=== PATIENT | female | born 1945 | race Caucasian/White ===

== ENCOUNTER 2017-09-02 09:40 | Inpatient (IN) | payer MEDICARE ==
[~2017-09-02] VITALS: Ht 167.6 cm; Wt 69.7 kg
[2017-09-02] MEDS ORDERED: LISINOPRIL10 MG PO (11:06)
[2017-09-02] MEDS ORDERED: GLIPIZIDE 10 MG10 MG PO (11:19)
[2017-09-02] MEDS ORDERED: LASIX 40 MG TAB40 M1 PO (11:20)
[2017-09-02] MEDS ORDERED: CARVEDILOL3.125 MG PO (11:21)
[2017-09-02] MEDS ORDERED: LIPITOR 20 MG T20 M1 PO (11:32)
[2017-09-02] MEDS ORDERED: ASPIR 8181 MG PO (11:33)
[2017-09-02] MEDS ORDERED: PACERONE 200 M200 M1 PO (11:34)
[2017-09-02] MEDS ORDERED: TYLENOL325 MG PO ×2 (11:35→11:36)
[2017-09-02] MEDS ORDERED: LEVEMIR100 UNIT/1 SUBQ (11:38)
[2017-09-02] MEDS ORDERED: TRAMADOL 50 MG50 MG PO (11:39)
[2017-09-02] MEDS ORDERED: PREDNISONE 5 MG5 M1 PO (11:44)
[2017-09-02] MEDS ORDERED: POTASSIUM20 PO (11:45)
[2017-09-02] MEDS ORDERED: PROTONIX40 M1 PO (11:46)
[2017-09-02] MEDS ORDERED: HUMALOG100 UNIT/1 SUBQ (11:47)
[2017-09-02 12:00] VITALS: BP 116/53
--- NOTE | 2017-09-02 13:14 | NUR ---
Nutrition: Spoke with RN: pt has been at [facility] and was on heart healthy, low CHO diet. RD ordered t his for pt here as well. Pt also stated she was receiving Boost Glucose Control - RD ordered that here as well. H/o CABG and DM. BG is 319 today. Pt is newly admitting - not a lot of info right now besides speaking with RN. Will follow weekly.
--- NOTE | 2017-09-02 16:34 | NUR ---
ASSUMMED CARE OF PT AT 1130 UPON ARRIVAL TO UNIT ADMISSION, PT ALERT AND ORIENTED, PT DENIES NAUSEA, DENIES PAIN, STATES A LITTLE SORE BUT DOES NOT NEED MEDICATION THIS SHIFT,TAKING FOOD AND FLUIDS WELL, STERNAL PRECAUTIONS MAINTAINED, MIDLINE CHEST INCISION HEALING, NO DRAINAGE NOTED, 2 SMALL INCISIONS ON UPPER ABDOMEN GAPING SLIGHTLY WITH SANGUINOUS DRAINAGE, MEPILEX APPLIED, BLISTERED AREA ON RIGHT UPPER INNER THIGH, OPENED, CLEANSED AND MEPILEX APPLIED, HARVEST SITE OF RLE DRY AND INTACT,SCABBED HARVEST SITE ON LLE DRAINING LARGE AMOUNTS OF SEROUS SANGUINOUS DRAINAGE, DRESSING CHANGED X 3 THIS SHIFT,RECTAL/COCCYX AREA RED, BARRIER OINTMENT APPLIED, WAFFLE CUSHION ON CHAIR, PT ENCOURAGED TO LAY ON SIDE WHEN IN BED, PARTICIPATED IN THERAPY, TRANSFERS WITH MOD ASSIST AND GB, NEEDS ASSIST TO STAND, ADMISSION COMPLETED, PICTURES TAKEN OF WOUNDS, ASSESSMENT COMPLETE, HOURLY ROUNDING COMPLETED, WILL CONTINUE TO MONITER.
[2017-09-02 20:25] VITALS: BP 131/50
--- NOTE | 2017-09-02 23:07 | NUR ---
ASSUMED CARE AT 1930. 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 ADHERES TO STERNAL PRECAUTIONS. USES HEART PILLOW TO SPLINT WITH COUGHING. COLACE HELD PER REQUEST. VOIDS PER TOILET, STOOL RISER IN USE. CAN DO HYGIENE AND CLOTHING ADJUSTMENTS. WEARS BRIEF. WAS INCONTINENT OF STOOL SOILING CLOTHING. CHUCKING AND SAWING MACHINE OPERATOR ASSISTED GETTING OFF THE BRIEF SO IT WOULD NOT FURTHER LEAK, BUT PATIENT ABLE TO DOFF NEW BRIEF. MOISTURE BARRIER APPLIED. STERNAL INCISION C/D/I. TWO WOUNDS ALONG BRA LINE HAVE MIPILEX AND ARE C/D/I. RT INNER THIGH BLISTERS HAVE MIPILEX. RIGHT CALF DONOR SITE SCABBED. LT DONOR SITE DRAINING SEROSANG, MIN AMOUNT, DRESSING CHANGED AT 2100 USING ABD FOLDED IN HALF AND SECURED WITH YANELY. PICC RT ARM DRESSING C/D/I, FLUSHES WELL. BILAT 2+ ANKLE EDEMA, ELEVATED ON PILLOWS AND HEELS OFFLOADED. TAKES PILLS WHOLE, MANY AT A TIME WITH WATER WITHOUT DIFF. HOURLY ROUNDS CONTINUE, BED ALARM ON. CALL LITE IN REACH.
--- NOTE | 2017-09-03 05:55 | NUR ---
SLEPT MOST OF THE NIGHT. TURNS SELF. NO C/O PAIN. UP TO VOID WITH MIN ASSIST, GAIT BELT AND HEART PILLOW FOR STERNAL PRECAUTIONS. HOURLY ROUNDS CONTINUE. BED ALARM ON. CALL LITE IN REACH.
[2017-09-03 08:07] VITALS: BP 124/66
--- NOTE | 2017-09-03 16:43 | NUR ---
PT PARTICIPATES IN ALL THERAPIES. PT UP TO BR WITH SB ASSIST. PT TOLERATES PO WELL. PAIN WELL CONTROLLED WITH PO MEDS
[2017-09-03 20:11] VITALS: BP 108/53
--- NOTE | 2017-09-03 22:13 | NUR ---
ASSUMED CARE AT 1930. PATIENT S/P CABG X 5. ON STERNAL PRECAUTIONS. PATIENT ABLE TO RISE WITH MINIMAL ASSIST, AMB WITHOUT ASSISTIVE DEVICE, GAIT BELT. VOIDS PER TOILET. ABLE TO DO HYGIENE AND CLOTHING ADJUSTMENTS. BRUSHED OWN TEETH. FLOSSED SOME TEETH, AND THEN ASKED IF IT WAS OK TO REUSE FLOSS. THIS NURSE INSTRUCTED THAT IT WOULD BE MORE SANITARY TO DISCARD FLOSS AFTER EACH USE. CHANGED INTO HOSPTIAL GOWN BRIEF FOR HS PER REQUEST DUE TO FECAL INCONTINENCE. MEDICATED FOR PAIN AT HS, SLEEPING SHORTLY AFTER. STERNAL INCISION BUSINESS SOLUTIONS ARCHITECT, C/D/I. TWO CHEST AREA DRESSINGS C/D/I. DRESSING TO RT DONOR SITE C/D/I. LT THIGH DONOR SITE DRESSING IS ABD/ROLLAR GAUZE IS C/D/I AT THIS TIME. HEELS OFFLOADED. PATIENT ABLE TO TURN SELF IN BED. HOURLY ROUNDS CONTINUE, BED ALARM ON, CALL LITE IN REACH.
--- NOTE | 2017-09-04 06:12 | NUR ---
SLEPT MOST OF THE NIGHT. VOIDED AROUND MIDNIGHT. NO APPARENT DISTRESS. HOURLY ROUNDS CONTINUE. BED ALARM ON. CALL LITE IN REACH.
[2017-09-04 06:47] VITALS: BP 125/59
[2017-09-04 08:00] VITALS: BP 106/67
--- NOTE | 2017-09-04 16:08 | NUR ---
ASSUMMED CARE OF PT AT 0730, PT ALERT AND ORIENTED, PT DENIES PAIN, MAINTAINING STERNAL PRECAUTIONS, TRANSFERS WITH MIN ASSIST AND GB, USES RED CARDIAC PILLOW FOR SUPPORT TO STERNUM, DENIES NAUSEA, TAKING FOOD AND FLUIDS WELL, PT UP IN CHAIR ALL AM, DOING LEG EXERCISES, PT DID PARTIAL BATH AND GROOMING SITTING AT SINK IN CHAIR INDEPENDENTLY, PT HAD SEVERAL VISITORS AT LUNCH AND REFUSED TO GO TO DININGROOM, DRESSING CHANGED TO INCISION SITES AND BLISTERED AREA, PICTURES TAKEN, ORDER FOR WD NURSE TO ASSESS BLISTERED AREA, LLE HARVEST SITES DRAINING LARGE AMOUNT OF SEROUS SANGUINOUS DRAINAGE,HOURLY ROUNDING COMPLETE, ASSESSMENT COMPLETE WILL CONTINUE TO MONITER.
[2017-09-04 19:38] VITALS: BP 117/50
--- NOTE | 2017-09-04 22:16 | NUR ---
ASSUMED CARE AT 1930. PATIENT S/P CVA. RESTING IN BED AT CHANGE OF SHIFT. VOIDS PER URINAL, NURSE EMPTIES. TAKES PILLS WHOLE WITH WATER WITHOUT DIFF. TURNS PER SELF, BUT NEEDS REMINDERS. INSTRUCTED IN NEED TO LAY COMPLETELY OFF HIS BACK TO HEAL COCCYX WOUND. PATIENT RESPONDED, "I WILL WORK ON THAT LATER." BUT DOES HAVE PILLOW UNDER RIGHT HIP THAT MAKES HIS HIP MORE COMFORTABLE. REFUSES ASSIST WITH TURNS AT THIS TIME. BILAT ANKLES SWOLLEN, FOOT OF BED ELEVATED, AND HEELS OFFLOADED WITH PILLOWS. LOTION LIBERALLY APPLIED TO BILAT FEET--SKIN INTEGRITY GOOD BUT HAS CALLUSES BILAT. ON C DIFF ISOLATION, FAMILY MEMBERS COMPLIED WITH IT THIS EVENING. PAIN MED AT HS. C/O LEFT LEG HAVING INTERMITTENT SHOOTING SYMPTOMS, NOT PAINFUL, BUT SHOOTING. MUSCLE TWITCHING OBSERVED BY THIS NURSE. INSTRUCTED NOT TO DRINK ANY ALCOHOL WITH FLAGYL IF HE GOES HOME ON THIS MED, PATIENT REPLIED THAT HE IS "DONE DRINKING." HOURLY ROUNDING CONTINUES. BED ALARM ON. CALL LITE IN REACH.
--- NOTE | 2017-09-04 22:28 | NUR ---
ASSUMED CARE AT 1930. PATIENT S/P CABG X 5. RESTING IN RECLINER WITH LEGS UP AT CHANGE OF SHIFT. VOIDED PER TOILET. UP WITH MIN LIFTING ASSIST, GAIT BELT, HEART PILLOW, STERNAL PRECAUTIONS. ABLE TO DO HYGIENE AND CLOTHING ADJUSTMENTS. ASSISTED WITH BILAT LEGS GETTING INTO BED. DRESSINGS TO ANTERIOR LOWER CHEST C/D/I. STERNAL INCISION PRESSROOM WORKER AND WELL APPROXIMATED. RT THIGH DRESSING C/D/I. LT DONOR SITE DRESSING CHANGED, HAD PINK TINGED DRAINAGE IN SMALLER AMOUNT THAN LAST NIGHT. AREA APPROXIMATING A LITTLE MORE, BRUISING IN AREA LESSENING. BLE ELEVATED ON PILLOWS WITH HEELS OFFLOADED. C/O THAT SHE IS ON MORE MEDICINES THAN SHE WAS AT HOME PRIOR TO HER CABG. INSTRUCTED HER THAT PHYSICIANS HAVE PRESCRIBED THESE MEDS BASED ON THE CHANGES IN HER PHYSICAL CONDITION THAT HAVE OCCURED S/P CABG, VERBALIZED UNDERSTANDING. HOURLY ROUNDS CONTINUE. BED ALARM ON. CALL LITE IN REACH.
[2017-09-05 04:43] LABS: CALCIUM 8.5 mg/dL (8.5-10.1); CREATININE 1.7 mg/dL (0.6-1.3); POTASSIUM 5.2 mmol/L (3.5-5.1)
--- NOTE | 2017-09-05 05:47 | NUR ---
SLEPT MOST OF THE NIGHT. UP TO VOID AFTER LABS DRAWN. LAB RETURNED WITH K OF 5.2. NEW ORDER TO HOLD THIS MORNING'S DOSE OF POTASSIUM AND DRAW LYTES IN AM PER DR. FRANCO. NO C/O PAIN. PATIENT OBSERVING STERNAL PRECAUTIONS. NEEDS HELP GETTING LEGS IN/OUT OF BED, AND NEEDS HELP SITTING UP IN BED DUE TO STERNAL PRECAUTIONS. ONCE IN SITTING POSITION ABLE TO RISE MUCH EASIER. HOURLY ROUNDS CONTINUE. BED ALARM ON. CALL LITE IN REACH.
[2017-09-05 07:55] VITALS: BP 135/64
--- NOTE | 2017-09-05 15:07 | NUR ---
ASSUMED CARE AT 0730 PATIENT ALERT/ORIENTED, NO COMPLAINTS OF PAIN THIS SHIFT. UP WITH ASSIST OF ONE AND GAIT BELT. BED/CHAIR ALARMS IN PLACE, CALL LIGHT IN REACH, HOURLY ROUNDING COMPLETED. PARTICIPATED IN ALL THERAPIES TODAY, TO DINING ROOM FOR MEALS. DRESSING TO LLE CHANGED DUE TO DRAINAGE AT SITE X2. CONTINUE WITH CURRENT PLAN OF CARE
--- NOTE | 2017-09-05 16:33 | NUR ---
WOUND CARE NOTE: CONSULT RECEIVED FOR BLISTERS PATIENT WITH HEALING INCISION LINE TO THE RIGHT INNER THIGH, TO BOTH SIDES THERE ARE BLISTERS. THE SUPERIOR MOST BLISTER IS FLAT AND DRY. THE DISTAL MOST BLISTER IS RUPTURED WITH A MOIST, RED WOUND BED THIS IS APPROXIMATELY 1X1X0.1. CLEANSED WITH WOUND CLEANSER, PATTED DRY. APPLIED AQUACEL AG AND SECURED WITH BORDERED FOAM. BELIEVE THIS WOUND MAY HAVE OCCURED FROM ADHESIVE COVERING THE INCISION SITE. LEFT LOWER LEG HARVEST SITE: WOUND MEASURES 0.8X0.3X0.4. DEHISCED PUNCTURE SITE. WOUND BED IS MOIST, RED. LARGE AMOUNTS OF SEROUS DRAINAGE. AFTER CLEANSING, PACKED WITH AQUACEL AG AND COVERED WITH ABD. SECURED WITH KERLIX. EDUCATED PATIENT ON IMPORTANCE OF NUTRITION FOR WOUND HEALING, COMMUNICATED UNDERSTANDING. EDUCATED ON FINDINGS AND DRESSING SELECTIONS, COMMUNICATED UNDERSTANDING. RECOMMEND TIGHT BLOOD GLUCOSE CONTROL ENCOURAGE GOOD NUTRITION AND HYDRATION
--- NOTE | 2017-09-05 16:48 | NUR ---
SW met with pt to complete initial assessment, introduce self, and SW role. Pt hopeful to be able to return home alone. Pt says that her niece who lives next door has a boyfriend who has 2 children and pt niece works apartment coordinator so pt is unsure how much niece will be able to assist pt if needed. Pt said that she may have other support at dc in her sister Jeanne but pt is not certain. Pt was independent prior to hospitalization and pt has no hx DME or HH. SW to continue to follow to assist with safe dc planning.
[2017-09-05 20:00] VITALS: BP 139/52
--- NOTE | 2017-09-05 20:00 | NUR ---
SITTING UP IN RECLINER WATCHING TV. DENIES DISCOMFORT. TOOK MEDS WHOLE WITH WATER.
[2017-09-06 04:25] LABS: CALCIUM 8.6 mg/dL (8.5-10.1); CREATININE 1.9 mg/dL (0.6-1.3); POTASSIUM 4.5 mmol/L (3.5-5.1)
--- NOTE | 2017-09-06 06:01 | NUR ---
UP X 3 DURING THE NIGHT TO THE BATHROOM TO VOID. DOES OWN HYGIENE AND CLOTHING ADJUSTMENTS. COMPLAINT WITH STERNAL PRECAUTIONS. DRESSING TO LLE CHANGED AT THE BEGINNING OF THE SHIFT DUE TO DRAINAGE. DRESSING IS DRY/INTACT. HOURLY ROUNDING IN PROGRESS.
[2017-09-06 07:32] VITALS: BP 144/63
--- NOTE | 2017-09-06 15:26 | NUR ---
I have reviewed the documentation by NATHAN TRAVIS from 09/06/17 to 09/06/17 and I concur with it. FAHAD GRAMAJO
--- NOTE | 2017-09-06 16:59 | NUR ---
ASSUMMED CARE OF PT AT 0730, PT ALERT AND ORIENTED, FORGETFUL, PT TRANSFERS WITH SBA, GB ABLE TO GO FROM SIT TO STAND MAINTAINING STERNAL PRECAUTIONS, AMBULATED TO DININGROOM, GAIT STEADY, PT DENIES PAIN, DENIES NAUSEA, APETITE GD, DRESSING CHANGED TO RIGHT CALF HARVEST SITE, DRESSING WAS SATURATED WITH SEROUS SANGUINOUS DRAINAGE, STERNAL SITE HEALING WELL, DRESSING DRY TO BLISTERED AREA ON RIGHT INNER THIGH, PARTICIPATED IN ALL THERAPIES, HOURLY ROUNDING COMPLETED ASSESSMENT COMPLETE, WILL CONTINUE TO MONITER.
--- NOTE | 2017-09-06 20:00 | NUR ---
SITTING UP IN RECLINER WATCHING TV. DENIES PAIN. SNACK PROVIDED. TOOK MEDS WHOLE ONE AT A TIME WITH WATER.
[2017-09-06 21:01] VITALS: BP 129/51
--- NOTE | 2017-09-07 06:27 | NUR ---
RESTED ON/OFF. HAD DIFFICULTY SLEEPING. DENIED PAIN. UP X TWO DURING THE NIGHT TO VOID. NO BM BUT PASSING FLATUS. HOURLY ROUNDING IN PROGRESS.
[2017-09-07 07:45] VITALS: BP 113/80
--- NOTE | 2017-09-07 15:07 | NUR ---
SW met with pt to review team conference summary. Plan for pt to continue therapy on rehab unit at least another week and for team to reassess pt length of stay during team conference next Thursday 09/14. PT reported min assist to supervision with transfers, min assist with walking 150 ft with RW, min assist 12 stairs. OT reported supervision for toileting, toilet transfer, bathing, and lower body dressing, mod assist with grooming, min assist with UB dressing. ST reported pt to be supervision with comprehension, mod I with expression, min assist with problem solving and memory. Pt wondered about being able to go to her doctor's appt on 09/14 and SW explained that if needed, SW would assist with arranging a ride and pt would go on a pass for appt if approved by rehab doctor. Pt said her sister Jeanne may be visiting pt tomorrow around Noon and SW could follow up with pt sister at that time. SW to continue to follow to assist with safe dc planning.
--- NOTE | 2017-09-07 18:07 | NUR ---
PATIENT IS RESTING IN CHAIR. PATIENT IS UP STANDBY ASSIST WITH GAIT BELT. PATIENT IS ON STERNAL PRESCAUTIONS AND HAS HEART PILLOW. PATIENT DENIES ANY PAIN. PATIENT HAS WOUND TO LLE WHICH IS DRAINING LARGE AMOUNT OF SEROSANGINOUS FLUID, DRESSING CHANGED THIS AFTERNOON. STERNAL WOUND OPEN TO AIR AND HEALING. RLE WOUND HEALING AND DRESSING CHANGED THIS AFTERNOON. PATIENT HAS GOOD APPETITE. PATIENT DENIES ANY NEEDS AT THIS TIME. CALL LIGHT WITHIN REACH. WILL CONTINUE TO MONITOR.
[2017-09-07 20:57] VITALS: BP 128/58
--- NOTE | 2017-09-08 01:01 | NUR ---
ASSUMED CARE @ 1929-09/07-TUE.SITS IN RECLINER W/ LE'S UP.HEART PILLOW ON CHEST AREA.SBA FOR ALL TRANSFERS & TOILETING.WANTS ONLY SIDERAILS X 2 UP.BED ALARM PUT ON @ 2129.HEELS OFF BED @ 2129.EDEMA-+1 PITTING RIGHT LEG/RIGHT FOOT & RIGHT ANKLE.PREFERS TO STAY ON HER BACK @ NIGHT W/ HOB UP.ON HOURLY ROUNDS. COMMUNITY HEALTH NURSE DOING ODD HOUR ROUNDS.
--- NOTE | 2017-09-08 05:26 | NUR ---
SLEEPING SINCE 2199.BRP W/ SBA X3.TOOK ALL ORANGE SHERBET HS SNACK.WEARS PULL UPS.
[2017-09-08 08:18] VITALS: BP 118/53
[2017-09-08 08:21] VITALS: BP 118/53
--- NOTE | 2017-09-08 16:09 | NUR ---
I have reviewed the documentation by NATHAN TRAVIS from 09/08/17 to 09/08/17 and I concur with it. FAHAD GRAMAJO
--- NOTE | 2017-09-08 18:21 | NUR ---
ASSUMED CARE AT 0730 PATIENT ALERT/ORIENTED, NO COMPLAINTS OF PAIN THIS SHIFT, UP WITH ASSIST OF ONE AND WALKER/GAIT BELT, PARTICIPATED IN ALL THERAPIES TODAY, TO DINING ROOM FOR MEALS. BED/CHAIR ALARMS IN PLACE, HOURLY ROUNDING COMPLETED. CONTINUE WITH CURRENT PLAN OF CARE
[2017-09-08 20:12] VITALS: BP 149/53
--- NOTE | 2017-09-09 02:32 | NUR ---
ASSUMED CARE @ 1922-09/08-.SITS IN RECLINER W/ LE'S UP.WATCHING TV.CHAIR ALARM ALREADY ON @ 1922.HEELS OFF RECLINER @ 1922.EDEMA-+1 PITTING RIGHT LEG, RIGHT ANKLE & RIGHT FOOT.TO BED LATE @ 2209.HEELS OFF BED @ 2209 & BED ALARM PUT ON @ 2209.PREFERS TO STAY ON HER BACK DURING NIGHT.STERNAL PRECAUTIONS OBSERVED.ON HOURLY ROUNDS.SALES EXECUTIVE DOING ODD HOUR ROUNDS.
--- NOTE | 2017-09-09 05:50 | NUR ---
SLEEPING SINCE -09/09-TUESDAY.TOOK ALL ORANGE SHERBET HS SNACK.BRP W/ SBA X2.WEARS PULL UPS.
[2017-09-09 07:54] VITALS: BP 117/59
[2017-09-09 08:34] VITALS: BP 117/59
--- NOTE | 2017-09-09 17:09 | NUR ---
AM ASSESSMENT AND VITAL SIGNS COMPLETED DOCUMENTED. PT HAS BEEN COOPERATIVE BUT HAS A FLAT AFFECT. STERNAL PRECAUIOTNS MAINTAINED AND PT HAS BEEN SUPERVISION/ STAND BY WITH ALL TASKS THIS SHIFT. PT DECLINED PAIN MEDICATION. STERNAL INCISION REMAINS RADIOLOGIC TECHNOLOGIST MAMMOGRAM, ALL OTHER DRESSINGS ARE C/D/I. FALL PRECAUTIONS AND HOURLY ROUNDING CONTINUE PER PROTOCOL.
[2017-09-09 20:16] VITALS: BP 113/50
--- NOTE | 2017-09-10 00:01 | NUR ---
ASSUMED CARE AT 1930. PATIENT S/P CABG X 5. RESTING IN RECLINER UNTIL AROUND 2099. UP WITH ONE, GAIT BELT, HEART PILLOW. STERNAL PRECAUTIONS OBSERVED. WEARS PULLUP. TAKES PILLS ONE AT A TIME WITH WATER WITHOUT DIFF. DRESSINGS TO CHEST C/D/I, LEG DRESSINGS INTACT. TURNS SELF IN BED. SLEEPS WITH HOB ELEVATED AND PREFERS BACK. DENIES PAIN. HEELS OFFLOADED WITH PILLOW. HOURLY ROUNDS CONTINUE. BED ALARM ON. CALL LITE IN REACH.
--- NOTE | 2017-09-10 06:16 | NUR ---
SLEPT MOST OF THE NIGHT. VOIDED PER TOILET. WEARS PULLUP, NO INCONTINENCE. NO C/O PAIN. HOURLY ROUNDS CONTINUE. BED ALARM ON. CALL LITE IN REACH.
[2017-09-10 07:51] VITALS: BP 133/60
--- NOTE | 2017-09-10 16:09 | NUR ---
ASSUMED CARE AT 0730 PATIENT ALERT/ORIENTED, NO COMPLAINTS OF PAIN THIS SHIFT, UP WITH ASSIST OF ONE AND WALKER/GAIT BELT, TO DINING ROOM FOR MEALS, BED/CHAIR ALARMS IN PLACE, CALL LIGHT IN REACH. PARTICIPATED IN ALL THERAPIES TODAY. HOURLY ROUNDING COMPLETED. CONTINUE WITH CURRENT PLAN OF CARE
[2017-09-10 20:19] VITALS: BP 125/54
--- NOTE | 2017-09-11 00:57 | NUR ---
ASSUMED CARE @ 1929-09/10-SAT.SITS IN RECLINER W/ LE'S UP.CARDIAC PILLOW ON CHEST.WEARS PULL UPS.SBA FOR ALL TRANSFERS & TOILETING.EDEMA-+1 PITTING RIGHT FOOT & RIGHT ANKLE.BED ALARM PUT ON @ 2129.HEELS OFF BED @ 1929 WHILE IN RECLINER & WHILE IN BED.WANTS ONLY SIDERAILS X2 UP.ON HOURLY ROUNDS.WAREHOUSE LABORER DOING ODD HOUR ROUNDS.
[2017-09-11 04:45] LABS: HEMATOCRIT 29.5 % (37.0-47.0); HEMOGLOBIN 10.1 gm/dL (12.0-15.0); MCH 30.9 pg (26.0-34.0); MCHC 34.1 g/dL (28.0-37.0); MCV 90.6 fL (80.0-100.0); MPV 8.5 fl. (7.2-11.1); RBC 3.25 mil/uL (4.20-5.00); RDW-CV 15.5 % (10.5-14.5); WBC 9.2 thou/uL (4.0-11.0)
[2017-09-11 05:00] LABS: CALCIUM 8.3 mg/dL (8.5-10.1); CREATININE 1.7 mg/dL (0.6-1.3); MAGNESIUM 2.1 mg/dL (1.8-2.4); POTASSIUM 4.5 mmol/L (3.5-5.1)
--- NOTE | 2017-09-11 05:23 | NUR ---
BRP W/ SBA X4.TOOK ALL ORANGE SHERBET HS SNACKS.FOR CHEST X RAY TODAY-09/11- TUESDAY.
[2017-09-11 07:46] VITALS: BP 119/56
--- NOTE | 2017-09-11 17:48 | NUR ---
ASSUMED CARE AT 0730 PATIENT ALERT/ORIENTED, NO COMPLAINTS OF PAIN THIS SHIFT, UP WITH STANDBY ASSIST AND WALKER/GAIT BELT. TO DINING ROOM FOR MEALS. DRESSING TO LEFT LE CHANGED, AREAS TO ABDOMEN AND RIGHT LEG HEALING LEFT OPEN TO AIR. HOURLY ROUNDING COMPLETED. BED/CHAIR ALARMS IN PLACE, CALL LIGHT IN REACH. CONTINUE WITH CURRENT PLAN OF CARE
[2017-09-11 20:12] VITALS: BP 102/45
--- NOTE | 2017-09-12 01:35 | NUR ---
ASSUMED CARE @ 1949-09/11-TUESDAY.SITS IN RECLINER W/ LE'S UP WATCHING TV.CHAIR ALARM ALREADY ON @ 1949.EDEMA-+1 PITTING RIGHT ANKLE & RIGHT FOOT.WANTS ONLY SIDERAILS X 2 UP.USES WALKER @ NIGHT.SBA FOR ALL TRANSFERS & TOILETING.USES CARDIAC PILLOW WHEN GETTING UP FROM BED & RECLINER.HEELS OFF BED @ 2200.BED ALARM PUT ON @ 2200.PREFERS TO STAY ON HER BACK @ NIGHT.ON HOURLY ROUNDS.SCRAP CUTTER DOING ODD HOUR ROUNDS.
--- NOTE | 2017-09-12 05:20 | NUR ---
SLEEPING SINCE -09/12-TUESDAY.BRP W/ SBA X2.TOOK ALL ORANGE SHERBET HS SNACK.
[2017-09-12 07:30] VITALS: BP 132/60
--- NOTE | 2017-09-12 16:35 | NUR ---
ASSUMMED CARE OF PT AT 0730, PT ALERT ORIENTED FORGETFUL AT TIMES, PT UP WITH SBA, GB WALKER, PT TAKING FOOD AND FLUIDS WELL, PT DENIES PAIN, PT AMBULATED TO DININGROOM, PT DENIES PAIN, MAINTAINING STERNAL PRECAUTIONS, PARTICIPATED IN ALL THERAPIES, HOURLY ROUNDING COMPLETED, ASSESSMENT COMPLETE WILL CONTINUE TO MONITER.
[2017-09-12 17:14] VITALS: BP 129/65
[2017-09-12 20:09] VITALS: BP 117/46
--- NOTE | 2017-09-13 05:56 | NUR ---
ASSUMED CARES AT 1920. PT ALERT AND ORIENTED. PLEASANT. S/P CABG. STERNAL PRECAUTIONS. USES HEART PILLOW. DENIES ANY PAIN, SOA, DIZZINESS. SHE IS A SBA WITH GAIT BELT AND WALKER. UP TO BATHROOM. DOES OWN CARES. TAKES PILLS WHOLE WITHOUT ISSUES. CHEST INCISIONS ARE COLLAR BASTER JUMPBASTING. DRESSING TO LEFT CALF. LEGS UP ONTO PILLOWS IN BED. PT SLEPT MOST OF THE NIGHT. USED CALL LIGHT. BED ALARM ON.
[2017-09-13 07:54] VITALS: BP 140/61
--- NOTE | 2017-09-13 13:01 | NUR ---
JESSI tried to follow up with pt sister as SW confirmed pt appt for 09/14 has been rescheduled for after pt stay on [facility]. JESSI left a voicemail message requesting call back. JESSI to continue to follow to assist with safe dc planning.
[2017-09-13 16:53] VITALS: BP 146/60
--- NOTE | 2017-09-13 18:09 | NUR ---
ASSUMMED CARE OF PT AT 0730, PT ALERT AND ORIENTED, MECHOOPDA, PT TRANSFERS WITH ASSIST OF 1 GB AND WALKER, STERNAL PRECAUTIONS MAINTAINED, PT DENIES NEED FOR PAIN MEDICATION, TAKING FOOD AND FLUIDS WELL, STERNAL INCISION HEALING, STAB SITES C/D/I AND DENIS EXCEPT FOR LEFT LEG SITE WHICH HAD SMALL AMOUNT OF YELLOW DRAINAGE OUT, DRESSSING CHANGED, PARTICPATED IN ALL THERAPIES, HAD LUNCH AND DINNER IN DININGROOM, VOIDS PER TOILET, HOURLY ROUNDING COMPLETED, ASSESSMENT COMPLETE, WILL CONTINUE TO MONITOR.
[2017-09-13 20:21] VITALS: BP 124/54
--- NOTE | 2017-09-13 21:00 | NUR ---
SITTING UP IN CHAIR WATCHING TV. DENIES DISCOMFORT. TOOK MEDS WHOLE WITH WATER. SNACK PROVIDED.
--- NOTE | 2017-09-14 06:29 | NUR ---
UP X ONE DURING THE NIGHT TO THE BATHROOM TO VOID. RESTED QUIETLY. NO COMPLAINTS VOICED. HOURLY ROUNDING IN PROGRESS.
[2017-09-14 08:53] VITALS: BP 119/59
--- NOTE | 2017-09-14 16:28 | NUR ---
SW met with pt to review team conference summary. SW discussed team's concerns for pt being alone at dc and SW discussed pt sister to participate in family training tomorrow and SW asked pt if pt thought pt sister could spend 2 weeks at least with pt 07/03. Pt said that her sister still works time checker and that pt was not sure that pt sister would be able to take that much time off of work. SW explained team would recommend pt to dc to SNF then and pt is agreeable to plan. SW to send referrals and discuss SNF placement options with pt. SW also called pt sister Cynthia and discussed above as well. SW to continue to follow to assist with safe dc planning.
--- NOTE | 2017-09-14 18:29 | NUR ---
ASSUMED CARE AT 0730 PATIENT ALERT/ORIENTED, NO COMPLAINTS OF PAIN THIS SHIFT, DRESSING TO LLE CHANGED, MINIMAL DRAINAGE NOTED, HEALING WELL. ALL OTHER INCISION DENIS, CALL LIGHT IN REACH, BED/CHAIR ALARMS IN PLACE, TO DINING ROOM FOR MEALS. PARTICIPATED IN ALL THERAPIES THIS SHIFT. CONTINUE WITH CURRENT PLAN OF CARE
[2017-09-14 20:08] VITALS: BP 129/64
--- NOTE | 2017-09-15 01:07 | NUR ---
ASSUMED CARE @ 1943-.SITS IN RECLINER W/ LE'S UP.WATCHING TV.CHAIR ALARM ALREADY ON @ 1943.EDEMA-+ 1 PITTING RIGHT ANKLE.HAS RARE DRY COUGH. HEELS OFF BED & BED ALARM PUT ON @ 2199.MEPILEX DRSG IN PLACE LEFT UPPER LEG. ON HOURLY ROUNDS.HEAVY EQUIPMENT OPERATING ENGINEER DOING ODD HOUR ROUNDS.
--- NOTE | 2017-09-15 05:39 | NUR ---
SLEEPING SINCE 2199.BRP W/ SBA X2.WEARS PULL UPS.TOOK ALL ORANGE SHERBET HS SNACK.NOTED SMALL OPEN ULCER RIGHT BUTTOCK.PICTURE TAKEN @ 0420.MEPILEX DRSG APPLIED.CONSENTED TO TURN TO RIGHT SIDE @ 4658.WOUND CONSULT ORDERED.
[2017-09-15 07:41] VITALS: BP 117/56
--- NOTE | 2017-09-15 14:07 | NUR ---
WOUND NURSE: PATIENT SEEN TO ADDRESS INTEGUMENTARY LESIONS PRESENT ON RIGHT BUTTOCK, RIGHT THIGH, LEFT LOWER LEG. PERTAINING TO RIGHT BUTTOCK WOUND: PATIENT REPORTING SHE HAD SCOOTED DOWN WHILE IN BED WHEN SHE SUDDENLY HAD PAIN AT THE WOUND SITE. PRESENTS A SLIGHTLY RAISED LINEAR LESION MEASURING 1.0 X 0.2 X 0.1 CM. THERE IS PARTIAL THICKNESS TISSUE LOSS AND WITH SCANT SEROUS DRAINAGE NOTED. IT IS NOTED THAT THIS IS PRESENT ALONG THE MEDIAL ASPECT OF THE PULL UP BRIEF PATIENT IS WEARING. I DO NOT BELIEVE THIS IS PRESSURE RELATED, BUT MAY BE MILD TRAUMA RELATED WHEREAS I SUSPECT PATIENT WAS PINCHED BY THE INCONTINENCE BRIEF WHILE SCOOTING HERSELF IN THE BED. CLEANSED THE AFFECTED AREA WITH SOAP AND WATER, RINSED WITH WATER, THEN PATTED DRY. APPLIED MARTHON LIQUID PROTECTIVE DRESSING TO THE SITE. THIS WAS TOLERATED WELL BY THE PATIENT. LEFT THIGH WOUND PRESENTS A LINEAR OPEN SURGICAL LESION MEASURING 0.3 X 0.2 X 0.6 CM, SMALL AMOUNT OF SEROUSANGUINOUS DRAINAGE ON OLD DRESSING, NO PERIWOUND REDNESS, WARMTH, OR INDURATION IS NOTED. WOUND CLEANSED WITH WOUND CLEANSER AND GAUZE, THEN PACKED LIGHTLY INTO THE WOUND USING A STRIP OF AQUACEL AG, THEN COVERED WITH AQUACEL AG SQUARE UNDER A BORDERED FOAM DRESSING. RIGHT THIGH HAS NO DRESSING IN PLACE AND THERE IS NO OPEN WOUND NOTED AT TIME OF THIS WRITING. LESION IS CLOSED AND FREE OF REDNESS, WARMTH, INDURATION, OR DRAINAGE. PLAN TO KEEP CLEAN AND DRY AND OPEN TO AIR AT THIS TIME. PATIENT INSTRUCTED ON MEASURES TO PROMOTE HEALING AND S/S TO REPORT IF OCCURS.
[2017-09-15 15:51] VITALS: BP 117/56
--- NOTE | 2017-09-15 15:54 | NUR ---
SW met with pt and pt 2 sisters about dc planning. Pt sister Cynthia called earlier in the day and cancelled family training because she decided she did not want to participate in family training after all. SW discussed pt needing SNF placement since no one would be available to provide 24/7 assistance for at least the next 2 weeks. Pt preference for [facility] and other possibilities for [facility] (does not have any beds available) and [facility] which then the sisters said they would not want that location. JESSI faxed referrals and then Karl from [facility] called and accepted referral for pt to dc to SNF on Tuesday. SW to call to arrange transportation and continue to assist with safe dc planning.
--- NOTE | 2017-09-15 18:04 | NUR ---
ASSUMED CARE AT 0730 PATIENT ALERT/ORIENTED, UP WITH STANDBY ASSIST AND GAIT BELT, NO COMPLAINTS OF PAIN THIS SHIFT, STERNAL PRECAUTIONS FOLLOWED WITH REMINDERS, USES PILLOW NEEDED. DRESSING TO BUTTOCKS AND LEFT LEG CHANGED BY WOUND NURSE TODAY. BED/CHAIR ALARMS IN PLACE, CALL LIGHT IN REACH, TO DINING ROOM FOR MEALS, HOURLY ROUNDING COMPLETED. CONTINUE WITH CURRENT PLAN OF CARE
[2017-09-15 20:18] VITALS: BP 113/52
--- NOTE | 2017-09-16 01:03 | NUR ---
ASSUMED CARE @ 1919-09/15-TUESDAY.SITS IN RECLINER W/ LE'S UP.CHAIR ALARM ALREADY ON @ 1919.RARE DRY,NON PRODUCTIVE COUGH PRESENT.MEPILEX DRSG IN PLACE LEFT LE WOUND.USES CARDIAC PILLOW NEEDED.EDEMA-+1 PITTING RIGHT ANKLE ONLY. 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
--- NOTE | 2017-09-16 05:30 | NUR ---
SLEEPING SINCE -09/16-TUESDAY.BRP W/ SBA X2.WEARS PULL UPS.TOOK ALL ORANGE SHERBET HS SNACK.
[2017-09-16 07:46] VITALS: BP 118/51
--- NOTE | 2017-09-16 13:42 | NUR ---
AM ASSESSMENT AND VITAL SIGNS COMPLETED DOCUMENTED. PT HAS BEEN PLEASANT AND COOPERATIVE, FLAT AFFECT NOTED AT TIMES. PT CONTINUES TO PARTICIPATE IN THERAPY AND IS PROGRESSING TOWARD DISCHARGE GOALS, PLANNING TO DISCHARGE TO A SNF TOMMORROW. PT ENCOURAGED TO SHIFT HER WEIGHT FREQUENTLY WHEN SITTING IN A CHAIR AND TO AVOID LYING ON HER BACK WHEN IN BED. FALL PRECAUTIONS AND HOURLY ROUNDING CONTINUE.
[2017-09-16 17:06] VITALS: BP 117/56
--- NOTE | 2017-09-16 17:07 | NUR ---
JESSI called admissions, Karl, at [facility] [place] [facility] to follow up on pt to dc to SNF on Tuesday. Scheduled transportation for 11:00 am. JESSI called and left a message for pt sister Cynthia to provide details of pt dc tomorrow. JESSI also spoke with pt and pt continues to be in agreement with plan. JESSI faxed final orders to [facility] [place], copied chart/prepared packet, and discussed with pt nurse.
--- NOTE | 2017-09-16 18:37 | NUR ---
PT AND HER SISTERS ARE AWARE OF THE DISCHARGE PLANS FOR TOMMORROW AND ARE IN AGREEMENT. NO CHANGE IN PLAN OF CARE AT THIS TIME.
[2017-09-16 20:17] VITALS: BP 122/56
--- NOTE | 2017-09-16 21:54 | NUR ---
ASSUMED CARE AT 1930. PATIENT S/P CABG X 5. RESTING IN RECLINER AT CHANGE OF SHIFT. UP WITH SBA, GAIT BELT, HEART PILLOW. ON STERNAL PRECAUTIONS. VOIDS PER TOILET. ALL INCISIONS DENIS EXCEPT ONE ON LEFT LOWER LEG WHICH IS COVERED WITH MIPILEX. TAKES PILLS ONE AT A TIME WITH WATER WITHOUT DIFF. ENCOURAGED CHANGING POSITIONS OFTEN, AND LYING ON SIDE WHEN POSSIBLE WHEN IN BED. HOURLY ROUNDS CONTINUE. BED AND CHAIR ALARMS IN USE. CALL LITE IN REACH.
--- NOTE | 2017-09-17 05:43 | NUR ---
SLEPT MOST OF THE NIGHT. VOIDED ONCE THROUGH THE NIGHT SO FAR. TURNS SELF. ENCOURAGED TO TURN TO SIDE TO ALLOW BOTTOM TO HEAL. RIGHT BUTTOCK APPEARS TO BE HEALING, MOISTURE BARRIER APPLIED. WEARING BRIEF. NO C/O PAIN THROUGH NIGHT. HOURLY ROUNDS CONTINUE. BED ALARM ON. CALL LITE IN REACH.
[2017-09-17 08:25] VITALS: BP 142/57
[2017-09-17] MEDS ORDERED: PACERONE 200 M200 MG PO (09:43)
[2017-09-17] MEDS ORDERED: LASIX 20 MG TAB20 MG PO (09:46)
[2017-09-17] MEDS ORDERED: POTASSIUM20 PO (09:52)
[2017-09-17] MEDS ORDERED: HUMALOG100 UNIT/1 SUBQ (10:00)
[2017-09-17] MEDS ORDERED: TYLENOL325 MG PO (10:02)
[2017-09-17] MEDS ORDERED: EUCERIN CREME120 GM TOP (10:40)
--- NOTE | 2017-09-17 11:04 | NUR ---
AM ASSESSMENT AND VITAL SIGNS COMPLETED DOCUMENTED. PT COMPLETED AM THERAPY SESSIONS AND IS NOW WAITING FOR TRANSPORTATION TO [facility]. PT'S BELONGINGS HAVE BEEN PACKED AND WILL BE TAKEN BY HER SISTER. DISCHARGE INSTRUCTIONS DISCUSSED WITH PATIENT AND PRINTED COPY PROVIDED. REPORT CALLED TO ACCEPTING FACILITY.
--- NOTE | 2017-09-17 11:14 | NUR ---
PT DISCHARGED TO [facility] IN STABLE CONDITION.
--- NOTE | 2017-10-05 13:45 | PLAN ---
[address] [address] REHAB UNIT PLAN OF CARE Name: NICK WYATT Room: [address] IN [facility].#: [id number] Admission: 09/02/17 Attend Phys: Nichole Garza DO Discharge: 09/17/17 Date of : 47 Report #: [id number] THIS REPORT FOR: //name// CC: Nichole Bills OVERALL PLAN OF CARE This is a 72-year-old female, status post CABG x 3 on 08/26/2017 at [facility]. She had no significant issues in the postoperative period, but she does have uncontrolled diabetes with random glucose of 254. She has anemia with a hemoglobin of 9.6. She has diabetic peripheral neuropathy in the bilateral lower extremity and diabetic retinopathy. She is maintaining sternal precautions. She does require daily medical care. She has physical and occupational therapy needs as well as mild impairment of comprehension, expression, problem solving and memory. MEDICAL PROGNOSIS: Good. REHABILITATION PROGNOSIS: Good. Estimated length of stay is 12-14 days with discharge disposition to the home setting where she lives alone and will likely need home health. Previous level of function was independent with all activities of daily living. Current level of function is minimum to maximum assistance of 1-2 depending on therapy, activity and time of day. Physical therapy will see the patient 60-90 minutes per day, 5 days per week, working on upper and lower body strength, balance, coordination, navigation. Occupational therapy will work with the patient 60-90 minutes per day, 5 days per week, working on upper and lower body strength, balance, coordination, navigation, bathing, dressing, and toileting. Speech and language pathology will work with the patient 30-90 minutes per day working on memory, cognition, expression and social interaction. This is an overall plan of care, may change from time to time. We will team her weekly and make changes to plan of care as needed. <ELECTRONICALLY SIGNED> By: Nichole Garza DO 10/05/17 1345 [id number] Garza DO /nt
--- NOTE | 2017-10-05 13:45 | H ---
[address] [address] HISTORY AND PHYSICAL Name: NICK WYATT Room: [address]#: [id number] Admission: 09/02/17 Attend Phys: Nichole Garza DO Discharge: 09/17/17 Date of : 47 Report #: [id number] THIS REPORT FOR: //name// CC: Nichole Bills HISTORY OF PRESENT ILLNESS: This is a 72-year-old female, admitted to inpatient rehabilitation to facilitate safe discharge home, status post admission at [facility] on 08/26/2017 for an elective coronary artery bypass graft x 3 due to chest pain for several months, positive stress test and known coronary artery disease. She underwent surgery and postoperative period was for the most part uneventful. She is uncontrolled diabetic with known bilateral lower extremity neuropathy, retinopathy. She also has multiple medical comorbidities requiring daily medical care. Her previous level of function was independent with activities of daily living. Her current level of function is minimum to maximum assistance of 1-2 depending on therapy, activity and time of day. She does have known mild impairment of comprehension, expression, social interaction, problem solving. There have been no significant changes since the preadmission screening. Estimated length of stay is 14-16 days with discharge disposition to the home setting. She does live alone. PAST MEDICAL HISTORY: Hypertension, hyperlipidemia, uncontrolled diabetes, random glucose of 254; chronic kidney disease stage 3, coronary artery disease, diabetic retinopathy, diabetic peripheral neuropathy. PAST SURGICAL HISTORY: Appendectomy, cardiac catheterization and coronary artery bypass graft x 3. ALLERGIES: No known drug allergies. SOCIAL HISTORY: No tobacco, alcohol or illicit drug use. FAMILY HISTORY: Diabetes and cardiac disease. REVIEW OF SYSTEMS: A 14-point review of systems is done today, is negative except as mentioned in HPI, specifically no fever, chest pain, shortness of breath, abdominal pain, change in bowel, change in bladder. PHYSICAL EXAMINATION: GENERAL: Alert, up in the chair, maintaining sternal precautions, no apparent distress. VITAL SIGNS: Reviewed and are stable. HEENT: Head atraumatic, normocephalic. Pupils equal, round, reactive. ABDOMEN: Soft, nontender, nondistended. NEUROLOGIC: Cranial nerves 2-12 are grossly intact [place] [address] HISTORY AND PHYSICAL Name: NICK WYATT Room: [address]#: [id number] Admission: 09/02/17 Attend Phys: Nichole Garza, DO Discharge: 09/17/17 Date of : 47 Report #: [id number] deficits, 5/5 strength in the bilateral upper and lower extremities. SKIN: Warm and dry. No rashes or lesions noted. ASSESSMENT: 1. Significant cardiac debility status post coronary artery bypass graft x 3. 2. Multiple medical comorbidities including uncontrolled diabetes with known bilateral peripheral neuropathy and retinopathy. 3. Hypertension. PLAN: 1. Admission to inpatient rehabilitation. 2. PT, OT, Speech, Language, Case Management, Nursing and HIMS to make evaluations and recommendations. 3. Plan of care is pending and will team her weekly. 4. Sternal precautions. <ELECTRONICALLY SIGNED> By: Nichole Garza DO 10/05/17 1345 1114 [id number] Garza DO /nt
--- NOTE | 2017-10-25 14:42 | D ---
[facility] [address] [place] [address] DISCHARGE SUMMARY Name: NICK WYATT Room: [address] IN [facility].#: [id number] Admission: 09/02/17 Attend Phys: Nichole Garza DO Discharge: 09/17/17 Date of : 47 Report #: [id number] THIS REPORT FOR: //name// CC: Nichole Bills DATE OF SERVICE: 09/17/2017 DISCHARGE DIAGNOSIS: Cardiac debility status post coronary artery bypass grafting. DISPOSITION: Discharged to a skilled level of care for continued rehabilitation. She is a full code. REHABILITATION PROGNOSIS: Fair. She will need physical and occupational therapy as well as speech and language pathology. She also has sternal precautions and has full weightbearing. DIET: Heart healthy ADA diet. WOUND CARE: Right buttock clean and dry, pat dry barrier cream. Left lower extremity clean, pat dry, apply Aquacel Ag, cover with border dressing. HOSPITAL COURSE: Fingerstick blood sugars a.c. and at bedtime. Follow up with surgeon in 2-3 weeks, primary care physician within 2-3 weeks and Cardiology within 2-3 weeks. MEDICATIONS: Reviewed and reconciled by myself and are available in the MAR. DISCHARGE PHYSICAL EXAMINATION: GENERAL: Alert, oriented, no apparent distress. VITAL SIGNS: Reviewed and are stable. HEENT: Head atraumatic, normocephalic. Pupils equal, round, reactive. ABDOMEN: Soft, nontender, nondistended. NEUROLOGIC: Cranial nerves 2-12 are grossly intact with no focal neuro deficits, 5/5 strength in the bilateral upper and lower extremities. SKIN: Warm and dry. No rashes or lesions noted. <ELECTRONICALLY SIGNED> By: Nichole Garza DO 10/25/17 1442 [id number] Garza DO /nt
== END 2017-09-17 11:15 | DRG 948 ==
LOC: M.REH 09:40
PROVIDERS: Family Medicine; Internal Medicine; ADMIT Physical Medicine & Rehabilitation
DX: R53.81 Other malaise (principal); I13.0 Hypertensive heart and chronic kidney disease with heart failure and stage 1 through stage 4 chronic kidney disease, or unspecified chronic kidney disease; J98.11 Atelectasis; I25.10 Atherosclerotic heart disease of native coronary artery without angina pectoris; E11.319 Type 2 diabetes mellitus with unspecified diabetic retinopathy without macular edema; E78.5 Hyperlipidemia, unspecified; N18.3 Chronic kidney disease, stage 3 (moderate); E11.22 Type 2 diabetes mellitus with diabetic chronic kidney disease; E11.42 Type 2 diabetes mellitus with diabetic polyneuropathy; I48.91 Unspecified atrial fibrillation; I50.9 Heart failure, unspecified; R60.9 Edema, unspecified; E11.65 Type 2 diabetes mellitus with hyperglycemia; D64.9 Anemia, unspecified; Z79.82 Long term (current) use of aspirin; Z79.4 Long term (current) use of insulin; Z79.899 Other long term (current) drug therapy; Z95.1 Presence of aortocoronary bypass graft; Z90.49 Acquired absence of other specified parts of digestive tract; Z83.3 Family history of diabetes mellitus; Z82.49 Family history of ischemic heart disease and other diseases of the circulatory system